=== PATIENT | female | born 1975 | race Caucasian/White ===

== ENCOUNTER 2021-06-12 10:26 | Emergency (ER) | payer BC ==
[~2021-06-12] VITALS: Ht 170.2 cm; Wt 86.4 kg
[2021-06-12 11:21] LABS: BASOPHILS % (AUTO) 0.9 % (0-1); EOSINOPHILS # (AUTO) 0.3 X10'3 (0-0.9); EOSINOPHILS % (AUTO) 4.9 % (0-6); HEMATOCRIT 43.6 % (35.0-45.0); HEMOGLOBIN 14.5 g/dl (12.0-16.0); LYMPHOCYTES # (AUTO) 2.1 X10'3 (1.1-4.8); LYMPHOCYTES % (AUTO) 38.4 % (21-51); MEAN CORPUSCULAR HEMOGLOBIN 30.3 PG (27.0-31.0); MEAN CORPUSCULAR HGB CONC 33.2 g/dL (33.0-36.5); MEAN CORPUSCULAR VOLUME 91.4 FL (78-98); MEAN PLATELET VOLUME 7.5 FL (7.4-10.4); MONOCYTES # (AUTO) 0.5 X10'3 (0-0.9); MONOCYTES % (AUTO) 10.2 % (2-12); NEUTROPHILS # (AUTO) 2.4 X10'3 (1.8-7.7); NEUTROPHILS % (AUTO) 45.6 % (42-75); PLATELET COUNT 298 X10'3 (140-440); RED BLOOD COUNT 4.78 X10'6 (4.20-5.60); RED CELL DISTRIBUTION WIDTH 13.2 % (11.5-14.5); WHITE BLOOD COUNT 5.3 X10'3 (4.5-11.0)
[2021-06-12 11:32] LABS: ALANINE AMINOTRANSFERASE 32 U/L (12-78); ALBUMIN 4.2 G/DL (3.4-5.0); ALBUMIN/GLOBULIN RATIO 1.2 (1.1-1.5); ALKALINE PHOSPHATASE 51 IU/L (46-116); ANION GAP 10 (8-16); BILIRUBIN,TOTAL 0.8 MG/DL (0.1-1.0); BLOOD UREA NITROGEN 13 MG/DL (7-18); BUN/CREATININE RATIO 17.3 (6.6-38.0); CALCIUM 9.5 MG/DL (8.5-10.1); CHLORIDE 103 MMOL/L (99-107); CREATININE 0.75 MG/DL (0.40-0.90); GLUCOSE 99 MG/DL (70-104); SODIUM 138 MMOL/L (135-145); TOTAL CARBON DIOXIDE 25.5 MMOL/L (24-32); TOTAL PROTEIN 7.8 G/DL (6.4-8.2); eGFR 83 ML/MIN
[2021-06-12 11:41] LABS: ASPARTATE AMINO TRANSFERASE 25 U/L (10-37); POTASSIUM 4.6 MMOL/L (3.5-5.1)
--- NOTE | 2021-06-12 11:44 | NUR ---
lightheaded, dizzy, rash on chest and arms, tingling numbness that goes down hands. no correlation with movement/activity. Today's episode lost hearing for a minute bilat, no headache, no N/V.
[2021-06-12] MEDS ORDERED: meclizine 12.5mg tablet PO ONE (12:30)
--- NOTE | 2021-06-12 13:22 | NUR ---
Pt stated she felt better, and was resting comfortably when checked
[2021-06-12 13:53] VITALS: BP 122/86
== END 2021-06-12 13:55 | disposition home or self-care (01) ==
LOC: ER 10:26
DX: R42 Dizziness and giddiness (principal); R20.0 Anesthesia of skin; H91.90 Unspecified hearing loss, unspecified ear; Z72.89 Other problems related to lifestyle
CPT/HCPCS: 36415; 71045; 80053; 83880; 84484; 85025; 93005; 99285; J8597